=== PATIENT | female | born 1965 | race Caucasian/White ===

== ENCOUNTER 2020-01-07 23:00 | Emergency (ER) | payer MEDICAID, OTHER ==
[~2020-01-07] VITALS: Ht 170.2 cm; Wt 93.9 kg
[~2020-01-07 23:00] MED LIST: AMIT25TA9 PO; PROP20TA7 PO
[2020-01-07 23:05] VITALS: BP_SYST 150
--- NOTE | 2020-01-07 23:21 | NUR ---
Patient to ER bed 3 to gown for evaluation. Side rails up. Report given to VANCE MACARIO.
--- NOTE | 2020-01-07 23:38 | NUR ---
PT BIB FAMILY TO ED C/O PAIN AND LAC TO BACK OF THE HEAD.NO ACTIVE BLEEDING.+DIZZINESS SHE WAS SLEEPING AND A WINDOW FELL ON HER BACK OF THE HEAD SUSTAINED LAC. - KO, VSS NO S/S OF ACUTE DISTRESS RESTING ON [facility] RAILS UP
--- NOTE | 2020-01-08 00:28 | NUR ---
VSS no s/s of acute distress Resting on gurney rails up
--- NOTE | 2020-01-08 00:54 | NUR ---
Dr. Ernst bedside for pt eval / lac repair procedure well tolerated
[2020-01-08 01:15] VITALS: BP_SYST 142
[2020-01-08] MEDS ORDERED: ACETAMINOPHEN 325 MG TABLET PO ONE (01:15)
--- NOTE | 2020-01-08 01:15 | NUR ---
Patient given written and verbal discharge instructions and verbalizes understanding. ER MD discussed with patient the results and treatment provided. Patient in stable condition. ID arm band removed. Patient educated on pain management and to follow up with PMD. Pain Scale 0/10 Opportunity for questions provided and answered.
== END 2020-01-08 01:15 | disposition home or self-care (01) ==
LOC: SED 23:00
DX: S01.01XA Laceration without foreign body of scalp, initial encounter (principal); W22.8XXA Striking against or struck by other objects, initial encounter; Y93.89 Activity, other specified; Y92.89 Other specified places as the place of occurrence of the external cause; Y99.8 Other external cause status
CPT/HCPCS: 99282

== ENCOUNTER 2020-03-08 22:08 | Emergency (ER) | payer MEDICAID ==
[~2020-03-08] VITALS: Ht 170.2 cm; Wt 99.8 kg
[2020-03-08 22:15] VITALS: BP_SYST 147
[2020-03-09] MEDS: HYDROcodone/ACETAMIN 5-325 MG TAB (NORCO/ VICODIN) PO ONE (00:10)
[2020-03-09 00:20] VITALS: BP_SYST 147
== END 2020-03-09 00:20 | disposition home or self-care (01) ==
LOC: SED 22:08
DX: M16.11 Unilateral primary osteoarthritis, right hip (principal); Z71.6 Tobacco abuse counseling
CPT/HCPCS: 73501; 99283